=== PATIENT | male | born 1980 ===

== ENCOUNTER 2018-09-20 22:01 | Emergency (ER) | payer BC, OTHER ==
[2018-09-20 22:10] VITALS: BP 135/92; PULSE 79; RESP 16; TEMP 98; O2SAT 97
--- NOTE | 2018-09-20 22:43 | ED PDOC ---
HPI: Male Pain Time Seen by Provider: 09/20/18 22:24 Chief Complaint (Nursing): Male Genitourinary Chief Complaint (Provider): Male Genitourinary History Per: Patient History/Exam Limitations: no limitations Onset/Duration Of Symptoms: Days (x4) Current Symptoms Are (Timing): Still Present Quality Of Discomfort: Burning Associated Symptoms: Urinary Symptoms. denies: Fever, Chills, Nausea, Vomiting, Diarrhea Additional Complaint(s): 38 year old male with a history of previous UTI 3 years ago presents to [facility] ED with 3 days of urinary urgency, frequency and burning sensation. Patient reports symptoms are similar to previous UTI incident. Patient denies any penile discharge, testicular pain, risk factors of STD, flank pain, fever, chills, urinary retention, incontinence, nausea, vomiting, or diarrhea. He states he has chronic cervical and lumbar pain that he is in physiotherapy for, but that pain is unchanged. PMD: none provided Past Medical History Reviewed: Historical Data, Nursing Documentation, Vital Signs Vital Signs: Last Vital Signs Temp 98 F 09/20/18 22:10 Pulse 79 09/20/18 22:10 Resp 16 09/20/18 22:10 BP 135/92 H 09/20/18 22:10 Pulse Ox 97 09/20/18 22:10 Primary Care Provider: Procedure,Nonphys - Medical History Other PMH: chronic cervical and lumbar pain - Surgical History Surgical History: No Surg Hx - Family History Family History: States: Unknown Family Hx - Social History Current smoker - smoking cessation education provided: No Ex-Smoker (has not smoked in the last 12 months): No Alcohol: None Drugs: Denies - Home Medications Home Medications: Ambulatory Orders Medication Instructions Recorded oxyCODONE/Acetaminophen [Percocet 1 ea PO Q6H PRN #15 tab 10/12/14 5/325 mg Tab] Ciprofloxacin [Cipro] 500 mg PO Q12 #14 tab 09/20/18 Phenazopyridine HCl [Pyridium] 100 mg PO TID #6 tab 09/20/18 - Allergies Allergies/Adverse Reactions: Allergies Allergy/AdvReac Type Severity Reaction Status Date / Time No Known Allergies Allergy Verified 09/20/18 22:06 Review of Systems ROS Statement: Except As Marked, All Systems Reviewed And Found Negative Constitutional: Negative for: Fever, Chills Gastrointestinal: Negative for: Nausea, Vomiting, Diarrhea Genitourinary Male: Positive for: Dysuria, Frequency, Other (urgency, no testicular pain, no urinary retention). Negative for: Incontinence, Penile Discharge Physical Exam - Reviewed Nursing Documentation Reviewed: Yes Vital Signs Reviewed: Yes - Physical Exam Appears: Positive for: Non-toxic, No Acute Distress Head Exam: Positive for: ATRAUMATIC, NORMOCEPHALIC Skin: Positive for: Normal Color, Warm, Dry Eye Exam: Positive for: EOMI, Normal appearance, PERRL Cardiovascular/Chest: Positive for: Regular Rate, Rhythm. Negative for: Murmur Respiratory: Positive for: Normal Breath Sounds. Negative for: Respiratory Distress Gastrointestinal/Abdominal: Positive for: Tenderness (mild suprapubic ) Male Genital Exam: Positive for: other (Deferred) Extremity: Positive for: Normal ROM (upper and lower). Negative for: Pedal Edema, Deformity Neurological/Psych: Positive for: Awake, Alert, Oriented (x3) - ECG O2 Sat by Pulse Oximetry: 97 (RA) Pulse Ox Interpretation: Normal Medical Decision Making Medical Decision Making: Time: 2223 Impression: 38 yo with dysuria Plan: --Urine studies including UA 2325 Urine reviewed with no evidence of UTI, however given pt presentation, will treat empirically. Patient stable for discharge and given outpatient follow up to urologist with diagnosis of dysuria. ScribeAttestation: Documented byMireya Pruitt, acting as a scribe for Bonifacio Miller MD. Provider ScribeAttestation: All medical record entries made by the Scribe were at my direction and personally dictated by me. I have reviewed the chart and agree that the record accurately reflects my personal performance of the history, physical exam, medical decision making, and the department course for this patient. I have also personally directed, reviewed, and agree with the discharge instructions and disposition. Disposition - Clinical Impression Clinical Impression: Dysuria - Disposition Referrals: Jung Coughlin Jr., MD [Staff Provider] - Miguelangel Gan MD [Staff Provider] - Disposition Time: 23:28 Condition: STABLE Prescriptions: Ciprofloxacin [Cipro] 500 mg PO Q12 #14 tab Phenazopyridine HCl [Pyridium] 100 mg PO TID #6 tab Instructions: Dysuria, Adult (DC) Forms: [email or web address] (Thai)
[2018-09-20 22:54] LABS: URINE BILIRUBIN NEGATIVE (NEGATIVE); URINE BLOOD NEGATIVE (NEGATIVE); URINE CLARITY CLEAR (Clear); URINE COLOR STRAW (YELLOW); URINE GLUCOSE (UA) NEG (NEGATIVE); URINE LEUKOCYTE ESTERASE NEG Leu/uL (Negative); URINE PROTEIN NEGATIVE (NEGATIVE); URINE UROBILINOGEN 0.2-1.0 mg/dL (0.2-1.0)
== END 2018-09-20 23:40 | disposition home or self-care (01) ==
LOC: H.ER 22:01
DX: R30.0 Dysuria (principal); Z87.891 Personal history of nicotine dependence